=== PATIENT | female | born 1990 | race African-American/Black ===

== ENCOUNTER 2022-04-17 16:15 | Inpatient (IN) | payer OTHER ==
[2022-04-17] MEDS: LACTATED RINGERS SOLUTION 1,000 ML/1,000 ML INFUS.BAG IV SCH ×2 (18:30→22:10)
[2022-04-17 18:32] VITALS: BMI 26.5
[2022-04-17] MEDS ORDERED: DINOPROSTONE 10 MG VAGINAL SUPPOSITORY VG ONE (18:50)
[2022-04-17] MEDS ORDERED: DEXTROSE 5%-LACTATED RINGERS 1,000 ML IV SCH (19:00)
[2022-04-17 19:30] LABS: URINE APPEARANCE CLEAR; URINE BILIRUBIN NEGATIVE (NEGATIVE); URINE COLOR YELLOW; URINE GLUCOSE (UA) NEGATIVE (NEGATIVE); URINE KETONE NEGATIVE (NEGATIVE); URINE LEUK ESTERASE 2+ (NEGATIVE); URINE NITRITE NEGATIVE (NEGATIVE); URINE PROTEIN NEGATIVE (NEGATIVE); URINE UROBILINOGEN 0.2 mg/dL (0.2-1.0)
[2022-04-17 19:56] LABS: METHADONE, UR NEGATIVE (NEGATIVE); PHENCYCLIDINE,URINE NEGATIVE (NEGATIVE)
[2022-04-17 19:57] LABS: OPIATES, URI NEGATIVE (NEGATIVE); URINE BENZODIAZEPINES NEGATIVE (NEGATIVE)
[2022-04-17 20:00] LABS: COCAINE, UR NEGATIVE (NEGATIVE); URINE AMPHETAMINES NEGATIVE (NEGATIVE); URINE BARBITURATES NEGATIVE (NEGATIVE)
[2022-04-17] MEDS ORDERED: AMPICILLIN - 2 GM in SODIUM CHLORIDE 100 ML IVPB ONE (21:15)
[2022-04-17] MEDS ORDERED: AMPICILLIN SODIUM 2 GM VIAL ONE (21:18)
[2022-04-17] MEDS ORDERED: FENTANYL/BUPIVACAINE/NS/PF - PCEA - 50 ML DISP.SYRIN EP ONE (21:57)
[2022-04-17] MEDS ORDERED: NALOXONE HCL 0.4 MG/ML VIAL IVPUSH PRN (22:06)
[2022-04-17] MEDS ORDERED: BUPIVACAINE HCL/PF 0.25% (2.5MG/ML) 10 ML VIAL ONE (22:08)
[2022-04-17] MEDS ORDERED: FENTANYL/BUPIVACAINE/NS/PF - PCEA - 50 ML DISP.SYRIN EP SCH (22:15)
[2022-04-17 22:22] LABS: EPI CELLS 29 /uL (0-25.1); HYALINE CASTS 0.4 /uL (0-3.1); URINE BACTERIA 311 /uL (0-1359); URINE RBC 6 /uL (0-23.9); URINE WBC 61 /uL (0-25.8)
[2022-04-17] MEDS ORDERED: CEFAZOLIN 2 GM in DEXTROSE 5%-WATER - 50 ML IVPB ONE (23:05)
[2022-04-17] MEDS ORDERED: OXYTOCIN 30 UNITS in 0.9% NS 30 UNIT/500 ML INFUS.BAG IVPB SCH (23:15)
[2022-04-18] MEDS ORDERED: AMPICILLIN SODIUM 1 GM VIAL ONE (00:59)
[2022-04-18] MEDS: AMPICILLIN - 1 GM in SODIUM CHLORIDE 100 ML IVPB SCH ×2 (01:15→05:55)
[2022-04-18] MEDS ORDERED: CEFAZOLIN 1 GM/D5W 1 GM/50 ML BAG IVPB SCH (02:00)
[2022-04-18] MEDS ORDERED: FENTANYL/BUPIVACAINE/NS/PF - PCEA - 50 ML DISP.SYRIN EP ONE (02:40)
[2022-04-18] MEDS ORDERED: OXYTOCIN 20 UNITS in 0.9% NS 20 UNIT/1,000 ML INFUS.BAG IV ONE (02:46)
[2022-04-18] MEDS ORDERED: LIDOCAINE HCL 1% PRESERVATIVE FREE - 30ML VIAL ONE (02:46)
[2022-04-18] MEDS ORDERED: IBUPROFEN 600 MG TABLET (FP) PO ONE (03:22)
[2022-04-18] MEDS ORDERED: ACETAMINOPHEN 325 MG TABLET (FP) ONE (03:22)
[2022-04-18] MEDS: ACETAMINOPHEN 325 MG TABLET (FP) PO PRN ×2 (03:25→18:23)
[2022-04-18] MEDS: IBUPROFEN 600 MG TABLET (FP) PO PRN ×3 (03:25→13:39)
[2022-04-18] MEDS ORDERED: BENZOCAINE 20% 57 GM BOTTLE TP PRN (03:28)
[2022-04-18] MEDS ORDERED: BISACODYL 10 MG SUPP.RECT RC PRN (03:28)
[2022-04-18] MEDS ORDERED: WITCH HAZEL 50% (TUCKS) 40 PAD/JAR PAD TP PRN (03:28)
[2022-04-18] MEDS ORDERED: BENZOCAINE 28 GM HEMORRHOIDAL OINTMENT TP PRN (03:28)
[2022-04-18] MEDS ORDERED: METHYLERGONOVINE MALEATE 0.2 MG/1 ML AMP IM PRN (03:28)
[2022-04-18] MEDS ORDERED: OXYTOCIN 20 UNITS in 0.9% NS 20 UNIT/1,000 ML INFUS.BAG IV SCH (03:30)
[2022-04-18] MEDS: oxyCODONE HCL 5 MG TABLET PO PRN ×2 (13:46→22:55)
[2022-04-18] MEDS ORDERED: ONDANSETRON 4 MG TABLET PO ONE (18:15)
[2022-04-18] MEDS: LACTATED RINGERS SOLUTION 1,000 ML/1,000 ML INFUS.BAG IV SCH (21:40)
[2022-04-18 22:23] VITALS: RESP 18
[2022-04-19] MEDS ORDERED: MAG HYDROX/AL HYDROX/SIMETH 30 ML UNIT-DOSE CUP PO PRN (06:59)
[2022-04-19] MEDS: oxyCODONE HCL 5 MG TABLET PO PRN (08:41)
[2022-04-19 09:37] LABS: BASO % 0.4 % (0-2.0); EOS % 0.5 % (0-4.5); HEMATOCRIT 32.8 % (32.4-45.2); HEMOGLOBIN 10.7 GM/dL (10.7-15.3); LYMPH % 14.6 % (8-40); MCH 26.6 pg (25.7-33.7); MCHC 32.6 g/dl (32.0-36.0); MEAN CELL VOLUME 81.6 fl (80-96); MEAN PLT VOLUME 7.4 fl (7.5-11.1); MONO % 4.5 % (3.8-10.2); PLATELET COUNT 434 10^3/uL (134-434); RBC 4.02 M/mm3 (3.60-5.2); RDW 13.4 % (11.6-15.6); WHITE BLOOD COUNT 13.2 K/mm3 (4.0-10.0)
[2022-04-19 14:58] VITALS: BP 115/81; PULSE 99; TEMP 97.6
[2022-04-19] MEDS ORDERED: SENNOSIDES/DOCUSATE COMBO (SENNA PLUS) TABLET (UD) PO PRN (22:00)
== END 2022-04-19 14:45 | disposition home or self-care (01) | DRG 560 ==
LOC: JDEL 16:15 → JLDR 16:16 → J3W 04-18 05:15
PROVIDERS: ADMIT Specialist; ATTEND Specialist
PROC: 10E0XZZ Delivery of Products of Conception, External Approach (ICD-10-PCS; principal; 2022-04-18)
PROC: 0W8NXZZ Division of Female Perineum, External Approach (ICD-10-PCS; 2022-04-18)
DX: O41.03X0 Oligohydramnios, third trimester, not applicable or unspecified (principal); O99.824 Streptococcus B carrier state complicating childbirth; Z3A.39 39 weeks gestation of pregnancy; Z37.0 Single live birth
CPT/HCPCS: 36415; 59409; 80053; 80307; 81003; 85025; 85027; 85610; 85730; 86780; 86850; 86900; 86901; 87389; C9803-CS; U0003; U0005